=== PATIENT | female | born 1990 | race Caucasian/White ===

== ENCOUNTER 2022-11-26 06:50 | Day surgery (SDC) | payer BC ==
[~2022-11-26 06:50] MED LIST: Lactated Ringers 1,000 ML IV SCH
[2022-11-26] MEDS ORDERED: Naloxone 0.4 MG/ML SDV IVPUSH PRN (06:58)
[2022-11-26] MEDS ORDERED: Metoclopramide 10 MG/2 ML SDV IVPUSH PRN (06:58)
[2022-11-26] MEDS ORDERED: Morphine 2 MG/ML SYRINGE IVPUSH PRN (06:58)
[2022-11-26] MEDS ORDERED: droPERidol 5 MG/2 ML SDV IVPUSH PRN (06:58)
[2022-11-26] MEDS ORDERED: Albuterol 0.083% 2.5 MG/3 ML Neb Soln NEB PRN (06:58)
[2022-11-26] MEDS ORDERED: Ondansetron 4 MG/2 ML SDV IVPUSH PRN (06:58)
[2022-11-26] MEDS ORDERED: fentaNYL 50 MCG/ML SDV IVPUSH PRN (06:58)
[2022-11-26] MEDS ORDERED: HYDROmorphone 1 MG/ML Syringe IVPUSH PRN (06:58)
[2022-11-26] MEDS ORDERED: Ropivacaine 0.5% 5 MG/ML 30 ML SDV ONE (07:22)
[2022-11-26] MEDS ORDERED: Bupivacaine 0.25% 30 ML SDV ONE ×2 (07:23→07:26)
[2022-11-26] MEDS ORDERED: Rocuronium Bromide 50 MG/5 ML Syringe ONE ×2 (07:25→08:56)
[2022-11-26] MEDS ORDERED: fentaNYL 100 MCG/2 ML SDV ONE ×2 (07:25→08:53)
[2022-11-26] MEDS ORDERED: Lidocaine 2% 5 ML SDV ONE (07:25)
[2022-11-26] MEDS ORDERED: Sugammadex Sodium 200 MG/2 ML VIAL ONE (07:25)
[2022-11-26] MEDS ORDERED: Propofol 200 MG/20 ML SDV ONE (07:25)
[2022-11-26] MEDS ORDERED: Dexamethasone 4 MG/ML 5 ML MDV ONE (07:25)
[2022-11-26] MEDS ORDERED: Ondansetron 4 MG/2 ML SDV ONE (07:25)
[2022-11-26] MEDS ORDERED: Ketorolac 30 MG/ML SDV ONE (07:25)
[2022-11-26] MEDS ORDERED: Methylene Blue 1% 10 ML SDV ONE (07:26)
[2022-11-26 07:40] LABS: HEMATOCRIT 36.4 % (36.0-46.0); HEMOGLOBIN 11.8 g/dL (12.0-16.0); MEAN CORPUSCULAR HEMOGLOBIN 25.2 pg (27.0-32.0); MEAN CORPUSCULAR HGB CONC 32.4 g/dL (31.0-37.0); MEAN CORPUSCULAR VOLUME 77.8 fL (80.0-98.0); PLATELET COUNT,PLT 287 K/uL (150-400); RED BLOOD CELL COUNT 4.68 M/uL (4.30-5.90); WHITE BLOOD CELL COUNT,WBC 6.19 K/uL (4.0-11.0)
[2022-11-26 07:55] LABS: ALBUMIN 3.9 g/dL (3.4-5.0); BILIRUBIN TOTAL 0.7 mg/dL (0.2-1.0); CALCIUM 8.5 mg/dL (8.5-10.1); CARBON DIOXIDE,CO2 25.6 mmol/L (21.0-32.0); CREATININE 0.7 mg/dL (0.6-1.0); EST CRCL DRUG DOSING (CG) 105.74 mL/min; POTASSIUM,K 3.6 mmol/L (3.5-5.1); PROTEIN TOTAL,TP 7.9 g/dL (6.4-8.2)
[2022-11-26] MEDS ORDERED: Acetaminophen/oxyCODONE 325-5 MG Tab PO PRN (10:19)
== END 2022-11-26 12:35 | disposition home or self-care (01) ==
LOC: MW.SDS 06:50
PROVIDERS: ATTEND Obstetrics & Gynecology
DX: N80.359 Endometriosis of pelvic sidewall, unspecified side, unspecified depth (principal); N80.03 Adenomyosis of the uterus; D25.9 Leiomyoma of uterus, unspecified; A49.3 Mycoplasma infection, unspecified site; E66.9 Obesity, unspecified; Z79.899 Other long term (current) drug therapy; Z98.84 Bariatric surgery status; Z91.040 Latex allergy status; Z91.048 Other nonmedicinal substance allergy status; Z98.51 Tubal ligation status
CPT/HCPCS: 36415; 58662; 64488; 80053; 81025; 85027; J0131; J1100; J1885; J2405; J2704; J2795; J3010; J3490; J7030; J7120; Q9968